=== PATIENT | male | born 1965 | race Caucasian/White ===

== ENCOUNTER 2019-01-16 16:32 | Inpatient (IN) | payer OTHER, MEDICAID ==
[~2019-01-16] VITALS: Ht 170.2 cm; Wt 84.8 kg
[2019-01-16] MEDS ORDERED: SODIUM CHLORIDE 0.9% 1,000 ML IV ONE (18:10)
[2019-01-16 18:41] LABS: CHLORIDE 107 mEq/L (98-107)
[2019-01-16 18:44] LABS: ETHANOL BLOOD < 10 mg/dL
[2019-01-16 20:06] LABS: *AMPHETAMINES SCREEN URINE NEGATIVE (NEGATIVE); *BARBITURATES SCREEN URINE NEGATIVE (NEGATIVE); *BENZODIAZEPINES SCREEN URINE NEGATIVE (NEGATIVE)
[2019-01-16 20:07] LABS: *COCAINE SCREEN URINE NEGATIVE (NEGATIVE); CANNABINOID URINE SCREEN PRESUMTIVE POSITIVE (NEGATIVE); METHADONE URINE SCREEN NEGATIVE (NEGATIVE); OPIATES URINE SCREEN NEGATIVE (NEGATIVE); PHENCYCLIDINE URINE SCREEN NEGATIVE (NEGATIVE)
[2019-01-16 20:08] LABS: BASOPHILS % 0.7 % (0.0-2.0); EOSINOPHILS % 2.4 % (0.0-5.0); HEMATOCRIT. 41.5 % (42.0-52.0); HEMOGLOBIN. 13.7 g/dL (14.0-18.0); LYMPHOCYTES % 20.1 % (20.0-50.0); MEAN CORPUSCULAR HEMOGLOBIN 26.6 pg (28.0-32.0); MEAN CORPUSCULAR VOLUME 80.7 fL (80.0-94.0); MEAN PLATELET VOLUME 8.6 fl (7.4-10.4); MONOCYTES % 6.9 % (2.0-8.0); NEUTROPHILS % 69.9 % (40.0-76.0); PLATELET 230 x1000/uL (130-400); RED BLOOD CELL COUNT 5.15 mill/uL (4.7-6.1); RED CELL DISTRIBUTION WIDTH 22.8 % (11.6-14.6)
[2019-01-16 20:30] LABS: PLATELET ESTIMATE NORMAL
[2019-01-16] MEDS ORDERED: FUROSEMIDE 20MG/2ML VIAL IVP ONE (20:30)
[2019-01-16] MEDS ORDERED: ACETAMINOPHEN 650MG/20.3ML UDC GT PRN (21:15)
[2019-01-16] MEDS ORDERED: HYDROCODONE/ACETAMINOPHEN 5/325MG TABLET PO PRN (21:15)
[2019-01-16] MEDS ORDERED: CLONIDINE 0.1MG TABLET PO PRN (21:15)
[2019-01-16] MEDS ORDERED: IPRATROPIUM/ALBUTEROL 0.5-3(2.5)MG/3ML NEB HHN PRN (21:15)
[2019-01-16] MEDS ORDERED: NA PHOS,M-B/NA PHOS,DI-BA ENEMA 118ML PR PRN (21:15)
[2019-01-16] MEDS ORDERED: DIPHENHYDRAMINE 50MG/ML VIAL IV PRN (21:15)
[2019-01-16] MEDS ORDERED: GUAIFENESIN 200MG/10ML SUGAR FREE UDC PO PRN (21:15)
[2019-01-16] MEDS ORDERED: ACETAMINOPHEN 650MG SUPP PR PRN (21:15)
[2019-01-16] MEDS ORDERED: ACETAMINOPHEN 325MG TABLET PO PRN (21:15)
[2019-01-16] MEDS ORDERED: DOCUSATE SODIUM 100MG CAPSULE PO PRN (21:15)
[2019-01-16] MEDS ORDERED: ONDANSETRON HCL 4MG/2ML INJ IV PRN (21:15)
[2019-01-16] MEDS ORDERED: MAGNESIUM/ALUMINUM HYDROXIDE/SIMETHICONE 30ML UDC PO PRN (21:15)
[2019-01-17 01:16] VITALS: BP 150/81
[2019-01-17] MEDS: SODIUM CHLORIDE 0.45% 1,000 ML IV SCH ×2 (04:43→13:48)
[2019-01-17] MEDS: SODIUM CHLORIDE 0.9% INJ 3ML FLUSH IVF SCH ×3 (04:44→22:55)
[2019-01-17 06:19] LABS: BASOPHILS % 0.4 % (0.0-2.0); EOSINOPHILS % 3.9 % (0.0-5.0); HEMATOCRIT. 40.9 % (42.0-52.0); HEMOGLOBIN. 13.7 g/dL (14.0-18.0); LYMPHOCYTES % 32.8 % (20.0-50.0); MEAN CORPUSCULAR HEMOGLOBIN 27.1 pg (28.0-32.0); MEAN CORPUSCULAR VOLUME 80.9 fL (80.0-94.0); MONOCYTES % 9.5 % (2.0-8.0); NEUTROPHILS % 53.4 % (40.0-76.0); PLATELET 215 x1000/uL (130-400); RED BLOOD CELL COUNT 5.05 mill/uL (4.7-6.1); RED CELL DISTRIBUTION WIDTH 22.4 % (11.6-14.6)
[2019-01-17 06:22] LABS: CHLORIDE 111 mEq/L (98-107)
[2019-01-17 06:38] LABS: LDL CHOLESTEROL 68 mg/dL (5-100)
[2019-01-17 06:40] LABS: CREATINE KINASE 105 IU/L (39-308); HDL CHOLESTEROL 26 mg/dL (40-59)
[2019-01-17 06:44] LABS: CREATINE KINASE MB FRACTION 1.5 ng/mL (0.5-3.6)
[2019-01-17 12:00] VITALS: BP 162/72
[2019-01-17] MEDS ORDERED: CALCIUM GLUCONATE 1,000 MG in DEXT 5% WATER 90 ML IV SCH (14:00)
[2019-01-17 16:00] VITALS: BP 140/64
[2019-01-17 16:33] LABS: CREATINE KINASE MB FRACTION 1.3 ng/mL (0.5-3.6)
[2019-01-17] MEDS: ASPIRIN 81MG EC TABLET PO SCH (17:55)
[2019-01-17 20:00] VITALS: BP 123/89
[2019-01-17] MEDS ORDERED: ATORVASTATIN CALCIUM 10MG TABLET PO SCH (21:00)
[2019-01-17] MEDS: METOPROLOL TARTRATE 25MG TABLET PO SCH (21:31)
[2019-01-18] VITALS: BP 139/88
[2019-01-18] MEDS: SODIUM CHLORIDE 0.45% 1,000 ML IV SCH (01:18)
[2019-01-18 04:00] VITALS: BP_SYST 142; BP_SYST 147; BP_DIAS 86; BP_DIAS 88; BP_DIAS 91
[2019-01-18] MEDS: SODIUM CHLORIDE 0.9% INJ 3ML FLUSH IVF SCH ×2 (06:00→14:19)
[2019-01-18 08:00] VITALS: BP 153/93
[2019-01-18] MEDS: ASPIRIN 81MG EC TABLET PO SCH (08:06)
[2019-01-18] MEDS: METOPROLOL TARTRATE 25MG TABLET PO SCH (08:08)
[2019-01-18 12:00] VITALS: BP 155/78
[2019-01-18] MEDS ORDERED: ATOR10TA PO (12:54)
[2019-01-18] MEDS ORDERED: METO-539 PO (12:54)
[2019-01-18] MEDS ORDERED: ASPI-1158 PO (12:54)
[2019-01-18] MEDS ORDERED: DEXTROSE 50% WATER 50ML SYRINGE IV PRN (13:45)
[2019-01-18 14:52] VITALS: BP 147/80
[2019-01-18] MEDS ORDERED: BLOOD SUGAR DIAGNOSTIC STRIP TEST SCH (17:40)
[2019-01-18] MEDS ORDERED: INSULIN LISPRO 100 UNITS/ML SUBCUT SCH (18:10)
[2019-01-18] MEDS ORDERED: METOPROLOL TARTRATE 50MG TABLET PO SCH (21:00)
== END 2019-01-18 16:18 | disposition home or self-care (01) | DRG 201 ==
LOC: ER 16:32 → 7WST 19:47 → EDBEDREQ 19:53 → EDBEDREQTM 19:53 → ENRESERV 21:32
PROVIDERS: ADMIT Family Medicine; ATTEND Family Medicine
DX: I47.1 Supraventricular tachycardia (principal); I11.0 Hypertensive heart disease with heart failure; I42.9 Cardiomyopathy, unspecified; R55 Syncope and collapse; E78.00 Pure hypercholesterolemia, unspecified; E78.5 Hyperlipidemia, unspecified
CPT/HCPCS: 36415; 70486; 71045; 73130; 80061; 80305; 80320; 82550; 82553; 82962; 83880; 84443; 84484; 93005; 93306; 93880; 96361; 96374; 97162; 99285; J0610; J1940; J7030; J7060; G0480

== ENCOUNTER 2022-06-28 00:53 | Emergency (ER) | payer MEDICAID ==
[~2022-06-28] VITALS: Ht 167.6 cm; Wt 94.0 kg
[~2022-06-28 00:53] MED LIST: ASPI-1406 PO; ATOR10TA PO; METO-539 PO
[2022-06-28] MEDS ORDERED: SODIUM CHLORIDE 0.9% 1,000 ML IV ONE (01:15)
[2022-06-28 01:26] LABS: BASOPHILS % 0.7 % (0.0-2.0); EOSINOPHILS % 4.2 % (0.0-5.0); HEMATOCRIT. 40.6 % (42.0-52.0); HEMOGLOBIN. 13.7 g/dL (14.0-18.0); LYMPHOCYTES % 26.6 % (20.0-50.0); MEAN CORPUSCULAR HEMOGLOBIN 30.3 pg (28.0-32.0); MEAN CORPUSCULAR VOLUME 89.6 fL (80.0-94.0); MEAN PLATELET VOLUME 9.8 fl (7.4-10.4); NEUTROPHILS % 62.5 % (40.0-76.0); PLATELET 162 x1000/uL (130-400); RED BLOOD CELL COUNT 4.53 mill/uL (4.7-6.1); RED CELL DISTRIBUTION WIDTH 14.9 % (11.6-14.6)
[2022-06-28 01:35] LABS: CHLORIDE 110 mEq/L (98-107)
[2022-06-28 01:36] LABS: *AMPHETAMINES SCREEN URINE PRESUMTIVE POSITIVE (NEGATIVE); *BARBITURATES SCREEN URINE NEGATIVE (NEGATIVE); *BENZODIAZEPINES SCREEN URINE NEGATIVE (NEGATIVE); *COCAINE SCREEN URINE NEGATIVE (NEGATIVE); CANNABINOID URINE SCREEN NEGATIVE (NEGATIVE); METHADONE URINE SCREEN NEGATIVE (NEGATIVE); OPIATES URINE SCREEN NEGATIVE (NEGATIVE); PHENCYCLIDINE URINE SCREEN NEGATIVE (NEGATIVE)
[2022-06-28 01:40] LABS: PHOSPHORUS 3.9 mg/dL (2.5-4.9)
[2022-06-28 01:44] LABS: ETHANOL BLOOD < 10 mg/dL
[2022-06-28] MEDS ORDERED: ASPIRIN 325MG EC TABLET PO ONE (02:45)
[2022-06-28 02:50] VITALS: BP 166/103
[2022-06-28] MEDS ORDERED: ASPI-867 MT (02:53)
== END 2022-06-28 02:55 | disposition left against medical advice (07) ==
LOC: ER 00:53
DX: I11.0 Hypertensive heart disease with heart failure (principal); I50.9 Heart failure, unspecified; Q89.9 Congenital malformation, unspecified; E78.00 Pure hypercholesterolemia, unspecified; F17.200 Nicotine dependence, unspecified, uncomplicated
CPT/HCPCS: 36415; 71045; 80053; 80305; 80320; 83735; 83880; 84100; 84484; 85025; 93005; 96360; 99285; J7030; G0480